=== PATIENT | female | born 1995 | race African-American/Black ===

== ENCOUNTER 2017-02-04 17:45 | Emergency (ER) | payer OTHER ==
[~2017-02-04] VITALS: Ht 160 cm; Wt 117.5 kg
[2017-02-04 18:05] VITALS: BP 140/68
[2017-02-06 10:45] LABS: RAPID PLASMA REAGIN Non Reactive (Non Reactive)
== END 2017-02-04 20:48 | disposition home or self-care (01) ==
LOC: ED 17:45
PROVIDERS: Emergency Medicine
DX: N89.8 Other specified noninflammatory disorders of vagina (principal); J45.909 Unspecified asthma, uncomplicated; E66.01 Morbid (severe) obesity due to excess calories; Z88.0 Allergy status to penicillin
CPT/HCPCS: 36415; 87491; 87591

== ENCOUNTER 2017-02-05 20:24 | Emergency (ER) | payer OTHER ==
[2017-02-05 21:15] VITALS: BP 132/100
== END 2017-02-05 21:10 | disposition home or self-care (01) ==
LOC: ED 20:24
DX: S30.864A Insect bite (nonvenomous) of vagina and vulva, initial encounter (principal); L29.9 Pruritus, unspecified; J45.909 Unspecified asthma, uncomplicated; N73.9 Female pelvic inflammatory disease, unspecified; E66.01 Morbid (severe) obesity due to excess calories; Z88.0 Allergy status to penicillin; W57.XXXA Bitten or stung by nonvenomous insect and other nonvenomous arthropods, initial encounter; Y93.89 Activity, other specified; Y92.89 Other specified places as the place of occurrence of the external cause; Y99.8 Other external cause status
CPT/HCPCS: 82962; J1200

== ENCOUNTER 2017-05-22 08:39 | Emergency (ER) | payer OTHER ==
[2017-05-22 10:04] VITALS: BP 120/64
== END 2017-05-22 10:04 | disposition home or self-care (01) ==
LOC: ED 08:39
DX: N39.0 Urinary tract infection, site not specified (principal); F17.210 Nicotine dependence, cigarettes, uncomplicated; J45.909 Unspecified asthma, uncomplicated; Z88.0 Allergy status to penicillin; Z71.6 Tobacco abuse counseling
CPT/HCPCS: 99406

== ENCOUNTER 2017-06-17 05:40 | Emergency (ER) | payer OTHER ==
[2017-06-17 06:44] VITALS: BP 152/94
== END 2017-06-17 06:44 | disposition home or self-care (01) ==
LOC: ED 05:40
DX: J03.90 Acute tonsillitis, unspecified (principal); F17.210 Nicotine dependence, cigarettes, uncomplicated; J45.909 Unspecified asthma, uncomplicated; Z88.0 Allergy status to penicillin
CPT/HCPCS: 99406

== ENCOUNTER 2017-09-03 20:39 | Emergency (ER) | payer OTHER ==
[~2017-09-03] VITALS: Ht 160 cm; Wt 113.4 kg
[2017-09-03 21:07] VITALS: Ht 160 cm; Wt 113.4 kg
[2017-09-03 22:06] VITALS: BP 143/82
== END 2017-09-03 22:06 | disposition home or self-care (01) ==
LOC: ED 20:39
DX: O26.891 Other specified pregnancy related conditions, first trimester (principal); Z3A.00 Weeks of gestation of pregnancy not specified; Z20.2 Contact with and (suspected) exposure to infections with a predominantly sexual mode of transmission; Z88.0 Allergy status to penicillin
CPT/HCPCS: 87491; 87591; J0696

== ENCOUNTER 2017-10-07 21:38 | Emergency (ER) | payer OTHER ==
[~2017-10-07] VITALS: Ht 160 cm; Wt 108.9 kg
[2017-10-07 21:51] VITALS: Ht 160 cm; Wt 108.9 kg
[2017-10-07 22:10] LABS: BASOPHIL % 0.1 % (0-2); PLATELET COUNT 339 x10^3mcL (130-400)
[2017-10-07 22:18] LABS: CALCIUM 9.2 mg/dL (8.5-10.1); CHLORIDE SERUM 101 mmol/L (98-107); CREATININE SERUM 0.7 mg/dL (0.6-1.0); GFR1 > 60 mL/min; GLUCOSE SERUM 105 mg/dL (74-106); POTASSIUM SERUM 3.2 mmol/L (3.5-5.1); SODIUM SERUM 139 mmol/L (136-145)
[2017-10-07 22:23] LABS: ALBUMIN 3.4 g/dL (3.4-5.0); ALKALINE PHOSPHATASE 57 U/L (46-116); ALT/SGPT 18 U/L (14-59); AST/SGOT 14 U/L (15-37); BILIRUBIN TOTAL 1.47 mg/dL (0.20-1.00); LIPASE 43 IU/L (73-393); TOTAL PROTEIN, SERUM 7.4 g/dL (6.4-8.2)
[2017-10-07 22:38] LABS: UA SPECIFIC GRAVITY >=1.030 (1.005-1.035); microscopic required? YES; urine erythrocyte NEGATIVE (NEGATIVE)
[2017-10-08 00:28] VITALS: BP 121/43
== END 2017-10-08 00:28 | disposition home or self-care (01) ==
LOC: ED 21:38
PROVIDERS: Emergency Medicine
DX: O26.891 Other specified pregnancy related conditions, first trimester (principal); O21.0 Mild hyperemesis gravidarum; J45.909 Unspecified asthma, uncomplicated; Z88.0 Allergy status to penicillin; Z3A.12 12 weeks gestation of pregnancy
CPT/HCPCS: J7030; Q0162

== ENCOUNTER 2017-11-02 16:32 | Emergency (ER) | payer OTHER ==
[~2017-11-02] VITALS: Ht 160 cm; Wt 111.1 kg
[2017-11-02 16:49] VITALS: Ht 160 cm; Wt 111.1 kg
[2017-11-02 19:18] LABS: UA SPECIFIC GRAVITY 1.025 (1.005-1.035); microscopic required? YES; urine erythrocyte NEGATIVE (NEGATIVE)
[2017-11-02 20:50] VITALS: BP 116/80
== END 2017-11-02 20:50 | disposition home or self-care (01) ==
LOC: ED 16:32
PROVIDERS: Emergency Medicine Emergency Medical Services
DX: O26.892 Other specified pregnancy related conditions, second trimester (principal); Z3A.00 Weeks of gestation of pregnancy not specified; Z88.0 Allergy status to penicillin
CPT/HCPCS: Q0092

== ENCOUNTER 2017-12-08 11:20 | Emergency (ER) | payer OTHER ==
[~2017-12-08] VITALS: Ht 167.6 cm; Wt 113.4 kg
[2017-12-08 11:37] VITALS: BP 116/493; Ht 167.6 cm; Wt 113.4 kg
== END 2017-12-08 13:00 | disposition home or self-care (01) ==
LOC: ED 11:20
DX: O36.8120 Decreased fetal movements, second trimester, not applicable or unspecified (principal); Z3A.24 24 weeks gestation of pregnancy; Z88.0 Allergy status to penicillin